=== PATIENT | female | born 1990 | race Caucasian/White ===

== ENCOUNTER 2018-01-30 16:44 | Emergency (ER) | payer SELFPAY ==
[~2018-01-30] VITALS: Ht 162.6 cm; Wt 71.4 kg
[~2018-01-30 16:44] MED LIST: ASPIRIN E.C. 8181 MG PO; LOVENOX 3030 MG/0.3 SQ; LOVENOX 4040 MG/0.4 SQ; MOTRIN 600600 MG/TAB PO; MOTRIN 800800 MG/TAB PO; NO HOME MEDICATIONS; NORCO 325 MG-51 TAB PO; PENICILLIN V500 MG PO; PERCOCET 325 MG1 TA2 PO; PRENATAL VITAMI1 TAB PO; PRENATAL1 TA7 PO; SENOKOT S 50 MG1 TAB PO; [UNRECOGNIZED DRUG - CODE] SQ
[2018-01-30 16:54] VITALS: BP 116/70; PULSE 81; TEMP 98.2
[2018-01-30] MEDS ORDERED: ADDERALL10 MG PO (17:33)
[2018-01-30] MEDS ORDERED: AMOXICILLIN 8751 TAB PO (18:10)
== END 2018-01-30 18:21 | disposition home or self-care (01) ==
LOC: COL.ER 16:44
DX: S61.250A Open bite of right index finger without damage to nail, initial encounter (principal); Z23 Encounter for immunization; W55.01XA Bitten by cat, initial encounter

== ENCOUNTER 2018-02-02 13:59 | Outpatient (RCR) | payer SELFPAY ==
[~2018-02-02 13:59] MED LIST changes: +ADDERALL10 MG PO; +AMOXICILLIN 8751 TAB PO
[2018-02-02 14:03] VITALS: BP 116/60; PULSE 85; TEMP 98.7
== END 2018-05-03 | disposition home or self-care (01) ==
LOC: COL.ER
DX: Z20.3 Contact with and (suspected) exposure to rabies (principal); Z23 Encounter for immunization

== ENCOUNTER 2019-05-13 18:17 | Emergency (ER) | payer BC ==
[~2019-05-13] VITALS: Ht 165.1 cm; Wt 65.9 kg
[2019-05-13 18:27] VITALS: BP 117/73; PULSE 69; TEMP 98.5
[2019-05-13] MEDS ORDERED: XANAX .25M0.25 MG/TA PO (18:33)
[2019-05-13] MEDS ORDERED: CLEOCIN HCL300 MG PO (19:10)
[2019-05-13] MEDS ORDERED: NORCO 325 MG-51 TAB PO (19:10)
== END 2019-05-13 19:38 | disposition home or self-care (01) ==
LOC: COL.ER 18:17
DX: K02.9 Dental caries, unspecified (principal); F17.290 Nicotine dependence, other tobacco product, uncomplicated; Z88.5 Allergy status to narcotic agent

== ENCOUNTER 2022-01-15 20:25 | Emergency (ER) | payer SELFPAY ==
[~2022-01-15] VITALS: Ht 165.1 cm; Wt 79.5 kg
[~2022-01-15 20:25] MED LIST changes: +CLEOCIN HCL300 MG PO; +XANAX .25M0.25 MG/TA PO
[2022-01-15 20:30] VITALS: TEMP 97.4
[2022-01-15 21:50] LABS: BASO % 0.1 % (0.0-2.0); EOS % 0.3 % (0.0-4.0); GRAN # 3.9 K/mm3 (1.4-6.5); GRAN % 54.2 % (42.2-75.2); HEMOGLOBIN 13.5 g/dl (12.5-16.0); LYMPH # 2.6 K/mm3 (1.2-3.4); LYMPH % 36.4 % (20.0-51.0); MEAN CELL VOLUME 91 fl (80.0-100.0); MEAN CORPUSCULAR HEMOGLOBIN 31 pg (27-31); MEAN CORPUSCULAR HGB CONC 34 g/dl (33.0-37.0); MEAN PLATELET VOLUME 8.6 fl (7.4-10.4); MONO # 0.6 K/mm3 (0.1-0.6); MONO % 8.3 % (1.7-9.3); PLATELET COUNT 264 K/mm3 (130-400); RED BLOOD COUNT 4.39 M/mm3 (4.10-5.30); REDCELL DISTRIBUTION WIDTH-CV 11.9 % (11.5-14.5)
[2022-01-15 22:07] LABS: ALBUMIN 3.8 gm/dL (3.5-5.0); BILIRUBIN,TOTAL 0.3 mg/dL (0.2-1.2); CALCIUM 8.6 mg/dL (8.4-10.2); CREATININE, serum 0.68 mg/dL (0.57-1.11); POTASSIUM 3.4 mmol/L (3.5-4.5); TOTAL PROTEIN 7.1 gm/dL (6.2-8.1)
[2022-01-16] MEDS ORDERED: NORCO 325 MG-51 TAB PO (00:38)
[2022-01-16 01:13] VITALS: BP 125/80; PULSE 80
== END 2022-01-16 01:13 | disposition home or self-care (01) ==
LOC: COL.ER 20:25
PROVIDERS: Personal Emergency Response Attendant
DX: S06.9X9A Unspecified intracranial injury with loss of consciousness of unspecified duration, initial encounter (principal); S30.1XXA Contusion of abdominal wall, initial encounter; Z79.891 Long term (current) use of opiate analgesic; Z28.310 Unvaccinated for COVID-19; V89.2XXA Person injured in unspecified motor-vehicle accident, traffic, initial encounter
CPT/HCPCS: J2270; J2405; Q9967

== ENCOUNTER 2022-02-23 02:56 | Emergency (ER) | payer BC ==
[~2022-02-23] VITALS: Ht 165.1 cm; Wt 81.8 kg
[2022-02-23 03:01] VITALS: BP 146/98; TEMP 98.3
[2022-02-23 03:15] LABS: COLLECTION METHOD CLEAN CATCH
[2022-02-23 03:17] LABS: BASO % 0.1 % (0.0-2.0); EOS % 0.1 % (0.0-4.0); GRAN # 5.3 K/mm3 (1.4-6.5); GRAN % 60.6 % (42.2-75.2); HEMATOCRIT 40.6 % (37.0-47.0); HEMOGLOBIN 13.7 g/dl (12.5-16.0); LYMPH # 2.8 K/mm3 (1.2-3.4); LYMPH % 31.3 % (20.0-51.0); MEAN CELL VOLUME 89 fl (80.0-100.0); MEAN CORPUSCULAR HEMOGLOBIN 30 pg (27-31); MEAN CORPUSCULAR HGB CONC 34 g/dl (33.0-37.0); MEAN PLATELET VOLUME 8.7 fl (7.4-10.4); MONO # 0.7 K/mm3 (0.1-0.6); MONO % 7.6 % (1.7-9.3); PLATELET COUNT 291 K/mm3 (130-400); RED BLOOD COUNT 4.55 M/mm3 (4.10-5.30); REDCELL DISTRIBUTION WIDTH-CV 11.5 % (11.5-14.5)
[2022-02-23] MEDS ORDERED: EFFE25TA (03:17)
[2022-02-23] MEDS ORDERED: LOMAIRA8 MG (03:17)
[2022-02-23 03:23] LABS: BUDDING YEAST Present (NOT PRESENT); MUCOUS Present (NOT PRESENT); PH 7 (5-8); SQUAMOUS EPITHELIAL 0-2 /hpf (0-10); URINE APPEARANCE Hazy (CLEAR/HAZY); URINE BACTERIA Rare /hpf (NONE SEEN); URINE BLOOD 2+ (NEGATIVE); URINE COLOR Yellow (YELLOW); URINE GLUCOSE Negative (NEGATIVE); URINE KETONE Negative (NEGATIVE); URINE NITRATE Positive (NEGATIVE); URINE PROTEIN(semi-quant) 1+ (NEGATIVE); URINE UROBILINOGEN Negative (NEGATIVE)
[2022-02-23 03:36] LABS: ALBUMIN 4.1 gm/dL (3.5-5.0); BILIRUBIN,TOTAL 0.4 mg/dL (0.2-1.2); CALCIUM 9.4 mg/dL (8.4-10.2); CREATININE, serum 0.77 mg/dL (0.57-1.11); POTASSIUM 3.8 mmol/L (3.5-4.5); TOTAL PROTEIN 8.2 gm/dL (6.2-8.1)
[2022-02-23] MEDS ORDERED: CIPRO 500MG TA500 MG PO (04:37)
[2022-02-23] MEDS ORDERED: TORADOL 10MG TA10 MG PO (04:37)
[2022-02-23 04:50] VITALS: PULSE 82
[2022-02-23] MEDS ORDERED: ZOFRAN ODT4 MG PO (05:43)
== END 2022-02-23 04:50 | disposition home or self-care (01) ==
LOC: COL.ER 02:56
PROVIDERS: Emergency Medicine
DX: N12 Tubulo-interstitial nephritis, not specified as acute or chronic (principal); Z87.442 Personal history of urinary calculi; Z28.310 Unvaccinated for COVID-19
CPT/HCPCS: J0696; J1885; J2405; J7030